=== PATIENT | female | born 2000 | race Caucasian/White ===

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

== ENCOUNTER 2018-01-16 09:18 | Emergency (ER) | payer BC ==
[2018-01-16 12:06] VITALS: BP 121/68
--- NOTE | 2018-01-16 12:15 | UC ---
Complaint Female HPI - HPI Summary HPI Summary: pt states 3 days ago developed a runny nose with cough and chest congestion. monday pm notes some pain during sex. monday am had recurrent pain and some bleeding with sex. this am noted a bout of severe L lower abdominal pain that is now improved but has fever. admits to sore throat, sob, nausea. denies any vaginal odor, lesions and discharge. no dysuria. has had same partner x 3 months. no hx std. uses mirena BC. - History Of Current Complaint Stated Complaint: FEMALE COMP Time Seen by Provider: 01/16/18 12:00 Hx Obtained From: Patient Hx Last Menstrual Period: unknown Onset/Duration: Gradual Onset Timing: Constant Pain Intensity: 7 Associated Signs And Symptoms: Positive: Fever, Vaginal Bleeding/Discharge. Negative: Vaginal Discharge, Genital Swelling, Genital Blisters - Risk Factors Ectopic Risk Factor: IUD Use Ovarian Torsion Risk Factor: Reproductive Age - Allergies/Home Medications Allergies/Adverse Reactions: Allergies Allergy/AdvReac Type Severity Reaction Status Date / Time seasonal Allergy Sneezing Uncoded 01/16/18 11:59 Home Medications: Home Medications Dm/Acetaminophen/Doxylamine [Night Cold-Flu Relief Liq Gel] 2 each PO ONCE PRN 01/16/18 [History Confirmed 01/16/18] PMH/Surg Hx/FS Hx/Imm Hx - Additional Past Medical History Additional PMH: acne, anxiety, pneumonia - Surgical History Surgical History: None - Family History Known Family History: Positive: Unknown Negative: Respiratory Disease - Social History Occupation: Student Lives: Dormitory/Roommates Alcohol Use: Occasionally Substance Use Type: None Smoking Status (MU): Never Smoked Tobacco - Immunization History Vaccination Up to Date: Yes Review of Systems Constitutional: Fever Skin: Negative Eyes: Negative ENT: Sore Throat, Nasal Discharge Respiratory: Shortness Of Breath, Cough Cardiovascular: Negative Gastrointestinal: Abdominal Pain, Nausea Genitourinary: Negative Motor: Negative Neurovascular: Negative Musculoskeletal: Negative Neurological: Negative Psychological: Negative Is Patient Immunocompromised?: No All Other Systems Reviewed And Are Negative: Yes Physical Exam Triage Information Reviewed: Yes Appearance: Ill-Appearing - but non toxic Vital Signs: Initial Vital Signs Temp 102.6 F 01/16/18 12:00 Pulse 97 01/16/18 12:00 Resp 18 01/16/18 12:00 BP 121/68 01/16/18 12:00 Pulse Ox 100 05/01/18 12:00 Eyes: Positive: Conjunctiva Clear ENT: Positive: Pharynx normal, Nasal congestion, Nasal drainage - clear, TMs normal Neck: Positive: Supple, Nontender, Enlarged Nodes @ - peritonsilar nodes with mild swelling Respiratory: Positive: Lungs clear, No respiratory distress, Decreased breath sounds Cardiovascular: Positive: RRR, No Murmur Abdomen Description: Positive: Other: - Soft, tender in L lower abdomen but no mass, hsm, cva tenderness.. Negative: Distended, Guarding Bowel Sounds: Positive: Present Pelvic Exam: Positive: Other - no external lesions, no vaginal d/c. iud strings seen, cultures done. no cmt or masses but L adnexa is very tender. Musculoskeletal: Positive: ROM Intact Neurological: Positive: Alert Psychological: Positive: Age Appropriate Behavior Skin Exam: Normal Diagnostics - Laboratory Diagnostic Studies Completed/Ordered: U/A=trace blood, trace leukocytes and culture is pending. hgc=negative. GC, Chlamydia, affirm with trich are all pending. syphilis testing refused. RAPID FLU AND STREP=NEGATIVE - Radiology No standard instances Radiology Interpretation Completed By: Radiologist - RML airspace disease vs recurrent pneumonia(see report). Complaint Female Dx - Course Course Of Treatment: pt remained unchanged of rechecks. source of fever could be pneumonia; however, it could be related to pt's LL abdominal pain. she requires ER transfer for additional evaluation likely to include blood work and imaging. pt agrees to transfer. [facility] ER called. report given to chalo ROCHA, advised of hx, PE, workup and possible pneumonia, fever and LL abdominal pain that may be contributing to fever thus additional eval needed. pt friend driving her to the ER. - Differential Dx/Diagnosis Provider Diagnoses: fever, possible RML pneumonia, L lower abdominal/adnexal pain Discharge - Sign-Out/Discharge Documenting (check all that apply): Discharge/Admit/Transfer - Discharge Plan Condition: Stable Disposition: TRANS HIGHER LVL OF CARE FAC Referrals: Non Staff,Doctor [Primary Care Provider] - Additional Instructions: GO DIRECTLY TO THE ER FROM URGENT CARE DISCUSSED. - Billing Disposition and Condition Condition: STABLE Disposition: EMTALA
[2018-01-16] MEDS ORDERED: Ibuprofen ADULT LIQ* 600 MG/30 ML UDC PO ONE (12:26)
--- NOTE | 2018-01-16 12:45 | RAD ---
INDICATION: Cough and fever COMPARISON: August 26, 2016 TECHNIQUE: PA and lateral dual-energy views were obtained. FINDINGS: Bones/Soft Tissues: There are no acute bony findings. Cardiomediastinal: The cardiomediastinal silhouette is normal. Lungs: There is apparent mild airspace disease in the right middle lobe appearing similar to the prior examination. This could be related to a recurrent pneumonitis or represent chronic change. The remaining lung arauz are clear. Pleura: There are no pleural effusions. Other: None IMPRESSION: MILD CHRONIC AIRSPACE DISEASE RIGHT MIDDLE LOBE VERSUS RECURRENT PNEUMONIA.
--- NOTE | 2018-01-18 07:23 | ED ---
Progress - Progress Note Progress Note: This patient reportedly sent to [facility] the day of her visit. Call the patient to find out if she is home yet, and if she is on any prescriptions. If she is not already on antibiotics for Gardnerella a prescription will need to be sent for her; if she is admitted to a hospital please send the culture result to the attending under whom she is admitted. Course/Dx - Course Course Of Treatment: pt remained unchanged of rechecks. source of fever could be pneumonia; however, it could be related to pt's LL abdominal pain. she requires ER transfer for additional evaluation likely to include blood work and imaging. pt agrees to transfer. [facility] ER called. report given to chalo ROCHA, advised of hx, PE, workup and possible pneumonia, fever and LL abdominal pain that may be contributing to fever thus additional eval needed. pt friend driving her to the ER. Discharge - Sign-Out/Discharge Documenting (check all that apply): Discharge/Admit/Transfer - Discharge Plan Condition: Stable Disposition: TRANS HIGHER LVL OF CARE FAC Referrals: Non Staff,Doctor [Primary Care Provider] - Additional Instructions: GO DIRECTLY TO THE ER FROM URGENT CARE DISCUSSED. - Billing Disposition and Condition Condition: STABLE Disposition: EMTALA
== END 2018-01-16 14:24 | disposition short-term general hospital (02) ==
LOC: UCCORT 09:18
DX: J18.9 Pneumonia, unspecified organism (principal); N89.8 Other specified noninflammatory disorders of vagina; B96.89 Other specified bacterial agents as the cause of diseases classified elsewhere; R50.9 Fever, unspecified; R10.32 Left lower quadrant pain; Z32.02 Encounter for pregnancy test, result negative
CPT/HCPCS: 71046; 81003; 84702; 87086; 87480; 87491; 87502; 87510; 87591; 87651; 87661; 99212; A9270-GY; G0463

== ENCOUNTER 2018-06-12 12:02 | Emergency (ER) | payer BC ==
--- OUTSIDE RECORDS SUMMARY | 2018-06-12 13:03 | XMS REPORT | Continuity of Care Document ---
:2000 External Reference #:[id number] Author Name Cinda Milan NP Address [address] [place] [address] Care Team Providers Name Role Phone Yes Primary Care Physician Unavailable Payers Type Date Identification Numbers Payment Provider Subscriber Policy Number: [id number] Rehan Garrett PayID: [id number] [address] [address] [place] [address] Advance Directives Description No Information Available Problems Date Description Provider Status Onset: 12/28/2016 Venereal disease screening Cinda Milan NP Active Onset: 12/28/2016 Oral contraceptive advice Cinda Milan NP Active Family History Date Family Member(s) Problem(s) Comments General Colon Cancer mom Father Alive Father No Current Problems Mother Alive Mother Colon Cancer Social History Type Date Description Comments Sex Unknown Education In College Marital Status Legal Status: Never Tobacco Use Reviewed: 05/23/18 Never Smoked Cigars Tobacco Use Reviewed: 05/23/18 Never Smoked A Pipe Smoking Status Reviewed: 05/23/18 Never Smoked A Pipe Tobacco Use Reviewed: 05/23/18 Never Used Smokeless Tobacco ETOH Use Currently consumes alcohol Recreational Drug Use Denies Drug Use Tobacco Use Reviewed: 05/23/18 Patient has never smoked Recreational Drug Use Teaching provided regarding Naloxone/Narcan Training Available At [facility] Tattoo/Piercing Negative For Tattoo Condom Use Occasionally Contraceptive Methods Current methods include levonorgestrel IUD UNKNOWN 05/23/2018 Never E-Cigarette user Allergies, Adverse Reactions, Alerts Description No Known Drug Allergies Medications Medication Date Status Form Strength Qnty SIG Indications Ordering Provider Metrogel-Vagina 05/23 Active Gel 0.75% 70gm one full N76.0 In Whan applicator MD Trevon intravaginal ly once a day for 5 full days Mirena (52 MG) Active Unknown / Celexa Active Fluconazole 11/15 Hx Tablets 150mg 2tabs one tab B37.3 In today and MD Trevon - january repeat 05/23 in 10 if still symptomatic Nystatin 11/15 Hx Cream [id number] 30gm apply to the B37.3 In t/GM skin folds MD Trevon - twice a day 05/23 until is gone Fluconazole 08/23 Hx Tablets 150mg 2tabs one tab B37.3 In today and MD Trevon - may repeat 11/15 in 10 if still symptomatic Diflucan 06/14 Hx Tablets 150mg 2tabs take 1 tab B37.3 In x1 today, MD Hermilo Lester may take 06/28 another 10 days later if still symptomatic Anxiety Meds 12/28 Hx In MD Trevon - 05/23 Control 12/28 Hx In MD Trevon - 06/14 Depo-Provera 12/28 Hx Suspension 150mg/ml 1ml intramuscula Z32.02 In r every 12 MD Trevon - weeks til 12/28 next Spironolactone Hx Unknown /0000 - 05/23 Amoxicillin Hx Unknown /0000 - 05/23 Immunizations Description No Information Available Vital Signs Date Vital Result Comment 05/23/2018 12:00pm BP Systolic 108 mmHg BP Diastolic 64 mmHg Height 66.5 inches 5'6.50" Weight 137.00 lb BMI (Body Mass Index) 21.8 kg/m2 11/15/2017 11:09am BP Systolic 115 mmHg BP Diastolic 62 mmHg Height 66.5 inches 5'6.50" Weight 137.00 lb BMI (Body Mass Index) 21.8 kg/m2 08/23/2017 8:54am BP Systolic 112 mmHg BP Diastolic 68 mmHg Height 66.5 inches 5'6.50" Weight 137.00 lb BMI (Body Mass Index) 21.8 kg/m2 06/28/2017 9:20am BP Systolic 123 mmHg BP Diastolic 68 mmHg Height 66.5 inches 5'6.50" Weight 135.00 lb BMI (Body Mass Index) 21.5 kg/m2 06/14/2017 3:33pm BP Systolic 106 mmHg BP Diastolic 62 mmHg Height 66.5 inches 5'6.50" Weight 135.00 lb BMI (Body Mass Index) 21.5 kg/m2 12/28/2016 9:30am BP Systolic 118 mmHg BP Diastolic 78 mmHg Height 66.5 inches 5'6.50" Weight 147.00 lb BMI (Body Mass Index) 23.4 kg/m2 Results Test Date Facility Test Result H/L Range Note Wet Prep.... 05/23/2018 [facility] WBC Smear neg Clue Cells Vag Fluid Wet Prep 1 Rachelle Wet Prep few Lactobacillus Wet Prep few Whiff Wet Prep neg Bacteria Wet Prep na PH Wet Prep 4.5 Misc Other Test no tric Chlam 11/15/2017 [facility] C.Trachomatis NOT DETECTED Not Detected 1 Trach/Neisseria Rna,Tma Gonorroeae Rna Tma N.Gonorrhoeae Rna,Tma NOT DETECTED Not Detected 2 Wet Prep.... 11/15/2017 [facility] WBC Smear neg Clue Cells Vag Fluid Wet Prep neg Rachelle Wet Prep many Lactobacillus Wet Prep neg Whiff Wet Prep neg Bacteria Wet Prep na PH Wet Prep 5 Misc Other Test no tric Laboratory test 08/23/2017 [facility] RPR W/Titer and NON-REACTIVE Non- Reactive 3 finding Conf RFX Chlam 08/23/2017 [facility] C.Trachomatis NOT DETECTED Not Detected 4 Trach/Neisseria Rna,Tma Gonorroeae Rna Tma N.Gonorrhoeae Rna,Tma NOT DETECTED Not Detected 5 Laboratory test finding 08/23/2017 [facility] HIV Rapid... non reactive Wet Prep.... 08/23/2017 [facility] WBC Smear neg Clue Cells Vag Fluid Wet Prep none Rachelle Wet Prep many Lactobacillus Wet Prep none Whiff Wet Prep neg Bacteria Wet Prep na PH Wet Prep 4.5 Misc Other Test no tric Chlam 06/28/2017 [facility] C.Trachomatis NOT DETECTED Not Detected 6 Trach/Neisseria Rna,Tma Gonorroeae Rna Tma N.Gonorrhoeae Rna,Tma NOT DETECTED Not Detected 7 Chlam 12/28/2016 [facility] C.Trachomatis NOT DETECTED Not Detected 8 Trach/Neisseria Rna,Tma Gonorroeae Rna Tma N.Gonorrhoeae Rna,Tma NOT DETECTED Not Detected 9 Wet Prep.... 12/28/2016 [facility] WBC Smear none Clue Cells Vag Fluid Wet Prep none Rachelle Wet Prep none Lactobacillus Wet Prep many Whiff Wet Prep neg Bacteria Wet Prep na Misc Other Test No trich Laboratory test finding 12/28/2016 [facility] Test Urine..... neg HIV Rapid... non reactive 1 This test was performed using the APTIMA COMBO2(R) Assay (GEN-PROBE(R). The analytical performance characteristics of this assay, when used to test SurePath(R) specimens have been determined by [facility]. 2 This test was performed using the APTIMA COMBO2(R) Assay (GEN-PROBE(R). The analytical performance characteristics of this assay, when used to test SurePath(R) specimens have been determined by [facility]. 3 The RPR is a pap-dmsbunjeqq-lhreaxyw test; therefore a treponemal-specific confirmatory test should be performed unless prior syphilis infection has been documented for the patient. 4 This test was performed using the APTIMA COMBO2(R) Assay (GEN-PROBE(R). The analytical performance characteristics of this assay, when used to test SurePath(R) specimens have been determined by [facility]. 5 This test was performed using the APTIMA COMBO2(R) Assay (GEN-PROBE(R). The analytical performance characteristics of this assay, when used to test SurePath(R) specimens have been determined by [facility]. 6 This test was performed using the APTIMA COMBO2(R) Assay (GEN-PROBE(R). The analytical performance characteristics of this assay, when used to test SurePath(R) specimens have been determined by [facility]. 7 This test was performed using the APTIMA COMBO2(R) Assay (GEN-PROBE(R). The analytical performance characteristics of this assay, when used to test SurePath(R) specimens have been determined by [facility]. 8 This test was performed using the APTIMA COMBO2(R) Assay (GEN-PROBE(R). The analytical performance characteristics of this assay, when used to test SurePath(R) specimens have been determined by [facility]. 9 This test was performed using the APTIMA COMBO2(R) Assay (GEN-PROBE(R). The analytical performance characteristics of this assay, when used to test SurePath(R) specimens have been determined by [facility]. Procedures Description No Information Available Encounters Type Date Location Provider Dx Diagnosis Office Visit 08/23/2017 [facility] Cinda Milan NP Z11.3 Encntr screen for 8:30a infections w sexl mode of transmiss Z30.431 Encounter for routine checking of intrauterine contracep dev B37.3 Candidiasis of vulva and vagina Z11.4 Encounter for screening for human immunodeficiency virus Z13.9 Encounter for screening, unspecified Z71.7 Human immunodeficiency virus [HIV] counseling Plan of Treatment Future Appointment(s):06/13/2018 8:00 am - WA[facility] SECOND CLASS at [facility]05/23/2018 - Cinda Milan NPZ11.3 Encounter for screening for infections with a predominantly sexual mode of transmissionFollow up:Follow up if any further symptoms.N76.0 Acute vaginitisNew Medication:Metrogel-Vaginal 0.75 % - one full applicator intravaginally once a day for 5 full daysComments:Abstain for sex while on medication and then use condoms for the following week. Please remember that consistent condom use will help reduce your risk of acquiring a sexually transmitted infection No soap in genital area, no thong underwear, and no prolonged periods in tight leggings and complete medication as prescribedFollow up:3 weeks
[2018-06-12 13:24] VITALS: BP 108/67
--- NOTE | 2018-06-12 13:37 | UC ---
Throat Pain/Nasal German HPI - HPI Summary HPI Summary: 18-year-old woman comes to clinic today with a complaint of runny nose cough chest congestion sputum production. This all started as upper respiratory tract infection symptoms 2 weeks ago. The sputum and rhinorrhea has progressed cleaned. The cough is productive. Patient's had pneumonia in the past. She does not believe this is pneumonia at this time. She does have postnasal drip. Trying to exercise makes the symptoms worse. She has used vzno-sez-kruqicm medications with little relief. - History of Current Complaint Chief Complaint: UCRespiratory Stated Complaint: COUGH CONGESTION FATIGUE SORE THROAT Time Seen by Provider: 06/12/18 13:25 Hx Last Menstrual Period: unknown Pain Intensity: 6 - Allergies/Home Medications Allergies/Adverse Reactions: Allergies Allergy/AdvReac Type Severity Reaction Status Date / Time seasonal Allergy Sneezing Uncoded 06/12/18 13:25 Home Medications: Home Medications Ferrous Sulfate [Iron High-Potency] 325 mg PO DAILY 06/12/18 [History Confirmed 06/12/18] PMH/Surg Hx/FS Hx/Imm Hx Respiratory History: Pneumonia - Surgical History Surgical History: None - Family History Known Family History: Negative: Respiratory Disease - Social History Alcohol Use: Occasionally Substance Use Type: None Smoking Status (MU): Never Smoked Tobacco - Immunization History Vaccination Up to Date: Yes Review of Systems Constitutional: Chills, Fatigue Skin: Negative Eyes: Negative ENT: Ear Ache, Nasal Discharge, Sinus Congestion, Sinus Pain/Tenderness Respiratory: Shortness Of Breath, Cough Cardiovascular: Negative Gastrointestinal: Negative Motor: Negative Neurovascular: Negative Musculoskeletal: Negative Psychological: Negative Is Patient Immunocompromised?: No All Other Systems Reviewed And Are Negative: Yes Physical Exam Triage Information Reviewed: Yes Appearance: No Pain Distress, Well-Nourished, Ill-Appearing - MILD Vital Signs: Initial Vital Signs Temp 98.6 F 06/12/18 13:21 Pulse 81 06/12/18 13:21 Resp 16 06/12/18 13:21 BP 108/67 06/12/18 13:21 Pulse Ox 100 06/12/18 13:21 Vital Signs Reviewed: Yes Eye Exam: Normal Eyes: Positive: Conjunctiva Clear ENT: Positive: Pharyngeal erythema, Nasal congestion, Nasal drainage, TMs normal , Sinus tenderness Neck exam: Normal Neck: Positive: Supple, Enlarged Nodes @ - ANTERIOR Respiratory: Positive: Lungs clear, Normal breath sounds, No respiratory distress, No accessory muscle use Cardiovascular: Positive: RRR Musculoskeletal Exam: Normal Musculoskeletal: Positive: Strength Intact, ROM Intact, No Edema Neurological Exam: Normal Neurological: Positive: Alert Psychological Exam: Normal Skin Exam: Normal Throat Pain/Nasal Course/Dx - Course Course Of Treatment: > 10 DAYS OF SX - Differential Dx/Diagnosis Provider Diagnoses: SINUSITIS. BRONCHITIS Discharge - Sign-Out/Discharge Documenting (check all that apply): Patient Departure All imaging exams completed and their final reports reviewed: No Studies - Discharge Plan Condition: Stable Disposition: HOME Prescriptions: Albuterol HFA INHALER* [Ventolin HFA Inhaler*] 2 puff INH Q4H PRN #1 mdi PRN Reason: Wheezing Amoxicillin/Clavulanate TAB* [Augmentin TAB 875*] 875 mg PO BID #20 tab Patient Education Materials: Sinusitis (ED), Acute Bronchitis (ED), Bronchospasm (ED) Referrals: [facility] [Outside] [facility] [Outside] Additional Instructions: FOLLOW UP WITH YOUR DOCTOR IF NOT COMPLETELY IMPROVED. GET RECHECKED FOR ANY WORSENING OF YOUR CONDITION OR QUESTIONS OR CONCERNS. - Billing Disposition and Condition Condition: STABLE Disposition: Home - Attestation Statements Document Initiated by Olga: No
== END 2018-06-12 13:51 | disposition home or self-care (01) ==
LOC: UCCORT 12:02
DX: J32.9 Chronic sinusitis, unspecified (principal); J40 Bronchitis, not specified as acute or chronic
CPT/HCPCS: 99212; G0463

== ENCOUNTER 2019-06-07 09:52 | Emergency (ER) | payer BC ==
[2019-06-07 10:41] VITALS: BP 94/48
[2019-06-07] MEDS ORDERED: Ibuprofen ADULT LIQ* 600 MG/30 ML UDC PO ONE (11:07)
[2019-06-07] MEDS ORDERED: Ondansetron ODT TAB* 4 MG PO ONE (11:08)
--- NOTE | 2019-06-07 11:13 | UC ---
General HPI - HPI Summary HPI Summary: pt fell in the early hours of this am after celebrating her birthday. she injured her R shoulder and R hand. she denies head, neck, back and any other injuries. - History of Current Complaint Chief Complaint: UCUpperExtremity Stated Complaint: RIGHT HAND INJURY Time Seen by Provider: 06/07/19 10:54 Hx Obtained From: Patient Hx Last Menstrual Period: nexplanon Pain Intensity: 8 Aggravating: movement Associated Signs & Symptoms: Positive: Edema - R hand - Allergy/Home Medications Allergies/Adverse Reactions: Allergies Allergy/AdvReac Type Severity Reaction Status Date / Time seasonal Allergy Sneezing Uncoded 06/07/19 10:39 PMH/Surg Hx/FS Hx/Imm Hx Psychological History: Depression - Surgical History Surgical History: None - Family History Known Family History: Positive: Non-Contributory Negative: Respiratory Disease - Social History Occupation: Student Lives: Dormitory/Roommates Alcohol Use: Occasionally Substance Use Type: None Smoking Status (MU): Never Smoked Tobacco - Immunization History Vaccination Up to Date: Yes Review of Systems All Other Systems Reviewed And Are Negative: No Constitutional: Negative: Fever Skin: Positive: Rash - abrasion R shoulder Musculoskeletal: Positive: Decreased ROM - R hand, Edema - R hand Neurological: Negative: Weakness, Paresthesia Physical Exam Triage Information Reviewed: Yes Appearance: Well-Appearing Vital Signs: Initial Vital Signs Temp 99.2 F 06/07/19 10:36 Pulse 75 06/07/19 10:36 Resp 16 06/07/19 10:36 BP 94/48 06/07/19 10:36 Pulse Ox 100 06/07/19 10:36 Vital Signs Reviewed: Yes Neck: Positive: Supple, Nontender Respiratory: Positive: No respiratory distress Cardiovascular: Positive: RRR Musculoskeletal: Positive: Other: - Head=atrumatic. RUE: shoulder with an abrasion and mild swelling plus tender. Pt showed full active ROM while removed her sweatshirt. Elbow without deformity or tenderness and rom intact. Wrist is non tender including snuff box with ROM intact. hand with diffude mild swelling and tenderness. rom limited. s/v intact to all finger tips. Neurological: Positive: Alert Psychological: Positive: Age Appropriate Behavior Skin Exam: Normal Diagnostics - Radiology No standard instances Radiology Interpretation Completed By: Radiologist - IMPRESSION: Impacted fracture proximal end of the proximal phalanx of the third digit. IMPRESSION: No fracture of the right shoulder is noted. Course/Dx - Course Course Of Treatment: PROCEDURE: preformed fiberglass splint applied to volar hand/wrist and held with chetna. finger tips with s/v pre and post splint. area above and below fx immobilized. pt tolerated well. - Differential Dx - Multi-Symptom Differential Diagnoses: Other - no fx/dislocation R shoulder but + abrasion/ contusion. + fx R hand. - Diagnoses Provider Diagnosis: Abrasion of shoulder, Contusion of shoulder region, Fracture of phalanx of right middle finger Discharge ED - Sign-Out/Discharge Documenting (check all that apply): Patient Departure All imaging exams completed and their final reports reviewed: Yes - Discharge Plan Condition: Stable Disposition: HOME Patient Education Materials: Finger Fracture (ED), Contusion in Adults (ED), Abrasion (ED) Forms: *School Release Referrals: Neal Oleary MD [Medical Doctor] - As Soon As Possible Additional Instructions: KEEP SPLINT ON AND DRY AT ALL TIMES - Billing Disposition and Condition Condition: STABLE Disposition: Home - Attestation Statements Provider Attestation: I was available for consult. This patient was seen by the KAYLYNN. The patient was not presented to, seen by, or examined by me. -Dhruv
== END 2019-06-07 12:31 | disposition home or self-care (01) ==
LOC: UCCORT 09:52
DX: S62.612A Displaced fracture of proximal phalanx of right middle finger, initial encounter for closed fracture (principal); S40.211A Abrasion of right shoulder, initial encounter; W19.XXXA Unspecified fall, initial encounter; Y92.9 Unspecified place or not applicable
CPT/HCPCS: 26600; 99212; A9270-GY; G0463